=== PATIENT | male | born 1985 | race African-American/Black ===

== ENCOUNTER 2020-11-18 18:03 | Emergency (ER) | payer OTHER ==
[~2020-11-18] VITALS: Ht 172.7 cm; Wt 76.0 kg
[2020-11-18] MEDS ORDERED: IBUPROFEN 600MG TABLET PO STA (19:18)
[2020-11-18] MEDS ORDERED: CHLORDIAZEPOXIDE 25MG CAPSULE PO ONE (19:30)
[2020-11-18 19:50] LABS: BASOPHILS % 1.3 % (0.0-2.0); EOSINOPHILS % 0.7 % (0.0-5.0); HEMATOCRIT. 41.4 % (42.0-52.0); HEMOGLOBIN. 14.3 g/dL (14.0-18.0); LYMPHOCYTES % 39.7 % (20.0-50.0); MEAN CORPUSCULAR HEMOGLOBIN 30.4 pg (28.0-32.0); MEAN CORPUSCULAR VOLUME 87.9 fL (80.0-94.0); MEAN PLATELET VOLUME 7.1 fl (7.4-10.4); MONOCYTES % 6.3 % (2.0-8.0); PLATELET 248 x1000/uL (130-400); RED BLOOD CELL COUNT 4.71 mill/uL (4.7-6.1); RED CELL DISTRIBUTION WIDTH 16.8 % (11.6-14.6)
[2020-11-18 19:58] LABS: CHLORIDE 105 mEq/L (98-107)
[2020-11-18 20:35] LABS: ETHANOL BLOOD 379 mg/dL
[2020-11-18 21:26] LABS: CLARITY URINE CLEAR (CLEAR); COLOR URINE YELLOW (YELLOW); KETONES URINE NEGATIVE (NEGATIVE); LEUKOCYTE ESTERASE URINE NEGATIVE (NEGATIVE); NITRITE URINE NEGATIVE (NEGATIVE); OCCULT BLOOD URINE TRACE (NEGATIVE); PH URINE 6.5 (4.5-8.0); PROTEIN URINE 1+ (NEGATIVE)
[2020-11-18 21:38] LABS: *AMPHETAMINES SCREEN URINE PRESUMTIVE POSITIVE (NEGATIVE); *BARBITURATES SCREEN URINE NEGATIVE (NEGATIVE)
[2020-11-18 21:39] LABS: *BENZODIAZEPINES SCREEN URINE NEGATIVE (NEGATIVE); *COCAINE SCREEN URINE NEGATIVE (NEGATIVE); CANNABINOID URINE SCREEN PRESUMTIVE POSITIVE (NEGATIVE); METHADONE URINE SCREEN NEGATIVE (NEGATIVE); OPIATES URINE SCREEN NEGATIVE (NEGATIVE); PHENCYCLIDINE URINE SCREEN NEGATIVE (NEGATIVE)
[2020-11-18 21:54] VITALS: BP 145/122
[2020-11-18] MEDS ORDERED: ONDANSETRON 4MG ODT PO ONE (22:00)
== END 2020-11-18 22:40 | disposition home or self-care (01) ==
LOC: ER 18:03
DX: R10.9 Unspecified abdominal pain (principal); T51.91XA Toxic effect of unspecified alcohol, accidental (unintentional), initial encounter; I10 Essential (primary) hypertension; R56.9 Unspecified convulsions; Y92.9 Unspecified place or not applicable; F10.129 Alcohol abuse with intoxication, unspecified; Y90.8 Blood alcohol level of 240 mg/100 ml or more
CPT/HCPCS: 36415; 80053; 80305; 80320; 81003; 83690; 85025; 93005; 99284; Q0162; G0480

== ENCOUNTER 2020-11-19 12:03 | Emergency (ER) | payer OTHER ==
[~2020-11-19] VITALS: Ht 172.7 cm; Wt 68.0 kg
[2020-11-19] MEDS: LORAZEPAM 2MG/ML CPJ IV ONE (12:54)
[2020-11-19 12:59] LABS: BASOPHILS % 0.5 % (0.0-2.0); EOSINOPHILS % 0.1 % (0.0-5.0); HEMATOCRIT. 37.6 % (42.0-52.0); HEMOGLOBIN. 12.6 g/dL (14.0-18.0); MEAN CORPUSCULAR HEMOGLOBIN 30.5 pg (28.0-32.0); MEAN CORPUSCULAR VOLUME 91.3 fL (80.0-94.0); MEAN PLATELET VOLUME 7.8 fl (7.4-10.4); MONOCYTES % 3.7 % (2.0-8.0); NEUTROPHILS % 86.7 % (40.0-76.0); PLATELET 190 x1000/uL (130-400); RED BLOOD CELL COUNT 4.12 mill/uL (4.7-6.1); RED CELL DISTRIBUTION WIDTH 16.9 % (11.6-14.6)
[2020-11-19 13:05] LABS: CHLORIDE 100 mEq/L (98-107)
[2020-11-19 13:09] LABS: ETHANOL BLOOD 23 mg/dL
[2020-11-19] MEDS: POTASSIUM CHLORIDE 20MEQ TABLET SR PO ONE (13:30)
[2020-11-19] MEDS: CHLORDIAZEPOXIDE 25MG CAPSULE PO ONE (13:30)
[2020-11-19] MEDS: SODIUM CHLORIDE 0.9% 1,000 ML IV ONE ×2 (15:01→15:05)
[2020-11-19 19:13] VITALS: BP 140/91
[2020-11-20] MEDS ORDERED: KEPP500 PO (10:58)
[2020-11-20] MEDS ORDERED: KEPP500 MT (12:59)
[2020-11-20] MEDS ORDERED: ONDA4TAB5 MT (13:01)
== END 2020-11-19 19:14 | disposition home or self-care (01) ==
LOC: ER 12:03
DX: G40.909 Epilepsy, unspecified, not intractable, without status epilepticus (principal); F10.129 Alcohol abuse with intoxication, unspecified; I10 Essential (primary) hypertension; F12.10 Cannabis abuse, uncomplicated; Z98.890 Other specified postprocedural states; Y90.1 Blood alcohol level of 20-39 mg/100 ml
CPT/HCPCS: 36415; 70450; 80053; 80320; 85025; 93005; 96361; 96374; 99285; J2060; J7030; G0480

== ENCOUNTER 2020-11-20 10:52 | Emergency (ER) | payer OTHER ==
[~2020-11-20] VITALS: Ht 182.9 cm; Wt 68.0 kg
[2020-11-20] MEDS ORDERED: KEPP500 PO (10:58)
[2020-11-20] MEDS ORDERED: ONDANSETRON HCL 4MG/2ML INJ IV STA (11:08)
[2020-11-20] MEDS ORDERED: LEVETIRACETAM 1000MG PREMIX 100 ML IV ONE (11:15)
[2020-11-20] MEDS ORDERED: SODIUM CHLORIDE 0.9% 1,000 ML IV ONE (11:15)
[2020-11-20 11:41] LABS: BASOPHILS % 0.5 % (0.0-2.0); EOSINOPHILS % 0.8 % (0.0-5.0); HEMATOCRIT. 39.5 % (42.0-52.0); HEMOGLOBIN. 13.2 g/dL (14.0-18.0); LYMPHOCYTES % 18.9 % (20.0-50.0); MEAN CORPUSCULAR HEMOGLOBIN 30.6 pg (28.0-32.0); MEAN CORPUSCULAR VOLUME 91.8 fL (80.0-94.0); MEAN PLATELET VOLUME 7.9 fl (7.4-10.4); MONOCYTES % 6.7 % (2.0-8.0); NEUTROPHILS % 73.1 % (40.0-76.0); PLATELET 169 x1000/uL (130-400); RED CELL DISTRIBUTION WIDTH 16.3 % (11.6-14.6)
[2020-11-20 11:50] LABS: CHLORIDE 93 mEq/L (98-107)
[2020-11-20 11:54] LABS: ETHANOL BLOOD < 10 mg/dL
[2020-11-20 12:34] LABS: CLARITY URINE CLEAR (CLEAR); COLOR URINE ORANGE (YELLOW); KETONES URINE 4+ (NEGATIVE); LEUKOCYTE ESTERASE URINE NEGATIVE (NEGATIVE); NITRITE URINE NEGATIVE (NEGATIVE); OCCULT BLOOD URINE TRACE (NEGATIVE); PH URINE 5.5 (4.5-8.0); PROTEIN URINE 1+ (NEGATIVE); SPECIFIC GRAVITY URINE 1.023 (1.005-1.030); UROBILINOGEN URINE 0.2 E.U./dL (0.2-1.0)
[2020-11-20] MEDS ORDERED: KEPP500 MT (12:59)
[2020-11-20] MEDS ORDERED: ONDA4TAB5 MT (13:01)
[2020-11-20 13:27] LABS: *AMPHETAMINES SCREEN URINE PRESUMTIVE POSITIVE (NEGATIVE); *BARBITURATES SCREEN URINE NEGATIVE (NEGATIVE); *BENZODIAZEPINES SCREEN URINE PRESUMTIVE POSITIVE (NEGATIVE)
[2020-11-20 13:28] LABS: *COCAINE SCREEN URINE NEGATIVE (NEGATIVE); CANNABINOID URINE SCREEN PRESUMTIVE POSITIVE (NEGATIVE); OPIATES URINE SCREEN NEGATIVE (NEGATIVE); PHENCYCLIDINE URINE SCREEN NEGATIVE (NEGATIVE)
[2020-11-20 13:30] LABS: METHADONE URINE SCREEN NEGATIVE (NEGATIVE)
[2020-11-20 14:24] VITALS: BP 125/69
== END 2020-11-20 14:26 | disposition home or self-care (01) ==
LOC: ER 10:52
DX: R53.1 Weakness (principal); R11.0 Nausea; E86.0 Dehydration; R56.9 Unspecified convulsions; I10 Essential (primary) hypertension; Z76.0 Encounter for issue of repeat prescription
CPT/HCPCS: 36415; 80053; 80305; 80320; 81003; 82962; 85025; 96374; 96375; 99284; J1953; J2405; J7030; 96361; G0480

== ENCOUNTER 2024-04-27 08:46 | Emergency (ER) | payer MEDICAID, OTHER ==
[~2024-04-27] VITALS: Ht 175.3 cm; Wt 66.0 kg
[~2024-04-27 08:46] MED LIST: KEPP500 MT; KEPP500 PO; ONDA4TAB5 MT
[2024-04-27 08:47] VITALS: TEMP 97.3; O2SAT 99
[2024-04-27 10:34] LABS: CHLORIDE 111 mEq/L (98-107); POTASSIUM 3.5 mEq/L (3.5-5.1); SODIUM 142 mEq/L (136-145)
[2024-04-27 10:35] LABS: CALCIUM 8.7 mg/dL (8.7-10.4); CARBON DIOXIDE 27 mEq/L (21-32)
[2024-04-27 10:38] LABS: PROTHROMBIN TIME 11.1 sec (9.6-11.0)
[2024-04-27 10:40] LABS: CREATININE 0.7 mg/dL (0.6-1.3); GLUCOSE 99 mg/dL (70-105)
[2024-04-27 10:41] LABS: BASOPHILS % 1.1 % (0.0-2.0); EOSINOPHILS % 1.6 % (0.0-5.0); HEMATOCRIT. 34.9 % (42.0-52.0); HEMOGLOBIN. 11.8 g/dL (14.0-18.0); LYMPHOCYTES % 29.2 % (20.0-50.0); MEAN CORPUSCULAR HEMOGLOBIN 33.1 pg (28.0-32.0); MEAN CORPUSCULAR HGB CONC 33.8 g/dL (31.0-37.0); MEAN CORPUSCULAR VOLUME 97.7 fL (80.0-94.0); MEAN PLATELET VOLUME 7.4 fl (7.4-10.4); MONOCYTES % 7.9 % (2.0-8.0); NEUTROPHILS % 60.2 % (40.0-76.0); PLATELET 401 x1000/uL (130-400); RED BLOOD CELL COUNT 3.57 mill/uL (4.7-6.1); RED CELL DISTRIBUTION WIDTH 12.6 % (11.6-14.6); WHITE BLOOD COUNT 7.2 x1000/uL (4.5-11.0)
[2024-04-27 10:42] LABS: TROPONIN I HIGH SENSITIVITY 12 ng/L (3.0-53)
[2024-04-27 10:51] LABS: UREA NITROGEN BLOOD < 5 mg/dL (9-23)
[2024-04-27 10:52] LABS: ETHANOL BLOOD < 10 mg/dL (<10)
[2024-04-27] MEDS: LEVETIRACETAM 1000MG PREMIX 100 ML IV ONE (10:59)
[2024-04-27 11:59] LABS: TROPONIN I HIGH SENSITIVITY 12 ng/L (3.0-53)
[2024-04-27] MEDS: SODIUM CHLORIDE 0.9% 1,000 ML IV ONE (12:24)
[2024-04-27 12:25] VITALS: BP 87/49; PULSE 81; RESP 14; O2SAT 97
[2024-04-27 16:27] LABS: CLARITY URINE CLEAR (CLEAR); COLOR URINE YELLOW (YELLOW); GLUCOSE URINE NEGATIVE (NEGATIVE); KETONES URINE NEGATIVE (NEGATIVE); LEUKOCYTE ESTERASE URINE NEGATIVE (NEGATIVE); NITRITE URINE NEGATIVE (NEGATIVE); OCCULT BLOOD URINE NEGATIVE (NEGATIVE); PH URINE 7.5 (4.5-8.0); PROTEIN URINE NEGATIVE (NEGATIVE); SPECIFIC GRAVITY URINE 1.006 (1.005-1.030); UROBILINOGEN URINE 0.2 E.U./dL (0.2-1.0)
[2024-04-27 16:40] LABS: *AMPHETAMINES SCREEN URINE NEGATIVE (NEGATIVE); *BARBITURATES SCREEN URINE NEGATIVE (NEGATIVE); *BENZODIAZEPINES SCREEN URINE NEGATIVE (NEGATIVE); *COCAINE SCREEN URINE NEGATIVE (NEGATIVE); ECSTASY MDMA SCREEN URINE NEGATIVE (NEGATIVE); METHADONE URINE SCREEN NEGATIVE (NEGATIVE); OPIATES URINE SCREEN NEGATIVE (NEGATIVE); PHENCYCLIDINE URINE SCREEN NEGATIVE (NEGATIVE)
[2024-04-27 16:41] LABS: CANNABINOID URINE SCREEN PRESUMPTIVE POSITIVE (NEGATIVE)
== END 2024-04-27 16:37 | disposition home or self-care (01) ==
LOC: ER 08:46
DX: G40.909 Epilepsy, unspecified, not intractable, without status epilepticus (principal); F17.200 Nicotine dependence, unspecified, uncomplicated; F12.90 Cannabis use, unspecified, uncomplicated
CPT/HCPCS: 80305; 80048; 81003; 80320; 83880; 85025; 85610; 84484; 36415; 71045; 70450; 93005; 96361; 96365; 99285; J1953; J7030; G0480